=== PATIENT | male | born 1970 | race Caucasian/White ===

== ENCOUNTER 2018-04-02 07:31 | Emergency (ER) | payer OTHER ==
--- NOTE | 2018-04-02 08:07 | EDM.PDOC ---
ED HPI GENERAL MEDICAL PROBLEM - General Chief Complaint: General Stated Complaint: PAIN ON RIGHT SIDE OF FACE Time Seen by Provider: 04/02/18 07:54 - History of Present Illness INITIAL COMMENTS - FREE TEXT/NARRATIVE: HISTORY AND PHYSICAL: History of present illness: Patient is a healthy 47-year-old male who presents with complaints of pain and swelling of the auricle in the lobe of his right ear that started yesterday. Patient says that initially he felt tingling and discomfort in his teeth both upper and lower on the right side but did not have any gum swelling or specific tooth pain. He says that he saw the dentist 3 weeks ago for checkup and everything was fine. He then started having pain and swelling to his right ear but not in her ear pain. There is no drainage from the ear. He said he woke this morning and felt that the face was lightly puffy on the right side and his hearing aid was uncomfortable and didn't fit properly due to the swelling. He has no systemic complaints of fever chills nausea vomiting or diarrhea and has no chest pain or shortness of breath. He has no other skin complaints. He had no trauma to the area that he knows of Review of systems: As per history of present illness and below otherwise all systems reviewed and negative. Past medical history: As per history of present illness and as reviewed below otherwise noncontributory. Surgical history: As per history of present illness and as reviewed below otherwise noncontributory. Social history: No reported history of drug or alcohol abuse. Family history: As per history of present illness and as reviewed below otherwise noncontributory. Physical exam: General: Well-developed well-nourished male who is nontoxic and vital signs are noted by me HEENT: Atraumatic, normocephalic, pupils reactive, negative for conjunctival pallor or scleral icterus, mucous membranes moist, throat clear, neck supple, nontender, trachea midline. Air is no intraoral swelling or dental decay nor tenderness to palpation of the teeth on the right side upper and lower. There is no gross facial swelling appreciated or crepitus and no palpable bony deformities. There is no mastoid tenderness or redness. The inner ear on the right is dull and there is some cerumen in the canal but no other inflammatory process is appreciated. The auricle of the ear is reddened and slightly swollen when compared to the left side but is not grossly tender and there is no fluctuance. Lungs: Clear to auscultation, breath sounds equal bilaterally, chest nontender. Heart: S1S2, regular rate and rhythm no overt murmurs Abdomen: Soft, nondistended, nontender. NABS Pelvis: Stable nontender. Genitourinary: Deferred. Rectal: Deferred. Extremities: Atraumatic, negative for cords or calf pain. Neurovascular unremarkable. Neuro: Awake, alert, oriented. Cranial nerves II through XII unremarkable. Cerebellum unremarkable. Motor and sensory unremarkable throughout. Exam nonfocal. 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 He is comfortable with this care plan and will monitor his symptoms Impression: Inflammation of right auricle of the ear rule out early cellulitis Definitive disposition and diagnosis as appropriate pending reevaluation and review of above. Right Ear Pain Score (Numeric/FACES): 3 - Related Data Allergies Allergy/AdvReac Type Severity Reaction Status Date / Time Penicillins Allergy Swelling Verified 04/02/18 07:42 Home Meds: Home Meds Etodolac 400 mg PO BID 04/02/18 [History] HCTZ/Triamterene [Dyazide 25-37.5 MG] 0.5 tab PO DAILY 04/02/18 [History] LORazepam 0.5 mg PO BEDTIME 04/02/18 [History] Pantoprazole [ProTONIX] 40 mg PO BID 04/02/18 [History] Past Medical History Cardiovascular History: Reports: Hypertension - Past Surgical History Cardiovascular Surgical History: Reports: Cardiac Ablation Musculoskeletal Surgical History: Reports: Shoulder Surgery Social & Family History - Family History Family Medical History: Unobtainable Other Dermatologic Family History: adopted - Tobacco Use Smoking Status *Q: Never Smoker Second Hand Smoke Exposure: No - Caffeine Use Caffeine Use: Reports: Coffee - Recreational Drug Use Recreational Drug Use: No ED ROS GENERAL - Review of Systems Review Of Systems: ROS reveals no pertinent complaints other than HPI. ED EXAM, GENERAL - Physical Exam Exam: See Below (See dictation) Course - Vital Signs Last Recorded V/S: Last Vital Signs Temp 36.2 C 04/02/18 07:40 Pulse 86 04/02/18 07:40 Resp 16 04/02/18 07:40 BP 154/109 H 04/02/18 07:40 Pulse Ox 94 L 04/02/18 07:40 Departure - Departure Time of Disposition: 08:06 Disposition: Home, Self-Care 01 Condition: Good Clinical Impression: Right ear pain Cellulitis Qualifiers: Site of cellulitis: face Qualified Code(s): L03.211 - Cellulitis of face - Discharge Information Referrals: PCP,None [Primary Care Provider] - Additional Instructions: The following information is given to patients seen in the emergency department who are being discharged to home. This information is to outline your options for follow-up care. We provide all patients seen in our emergency department with a follow-up referral. The need for follow-up, as well as the timing and circumstances, are variable depending upon the specifics of your emergency department visit. If you don't have a primary care physician on staff, we will provide you with a referral. We always advise you to contact your personal physician following an emergency department visit to inform them of the circumstance of the visit and for follow-up with them and/or the need for any referrals to a consulting specialist. The emergency department will also refer you to a specialist when appropriate. This referral assures that you have the opportunity for followup care with a specialist. All of these measure are taken in an effort to provide you with optimal care, which includes your followup. Under all circumstances we always encourage you to contact your private physician who remains a resource for coordinating your care. When calling for followup care, please make the office aware that this follow-up is from your recent emergency room visit. If for any reason you are refused follow-up, please contact the [facility] emergency department at and ask to speak to the emergency department charge nurse. [facility] Primary care- Internal Medicine and Family [address] [address] Use ice to areas of swelling and return to her dentist for a recheck as we discussed. Take antibiotics as directed and closely monitor your symptoms. Return to ER as needed and as discussed and schedule a follow-up appointment with your provider or one of ours in the next few days for reevaluation.
== END 2018-04-02 08:25 | disposition home or self-care (01) ==
LOC: MW.ED 07:31
DX: L03.211 Cellulitis of face (principal); H92.01 Otalgia, right ear; I10 Essential (primary) hypertension; Z88.0 Allergy status to penicillin; Z79.899 Other long term (current) drug therapy
CPT/HCPCS: 99283